=== PATIENT | male | born 1950 | race Caucasian/White ===

== ENCOUNTER → 2021-10-05 10:40 | Outpatient (CLI) | payer BC, SELFPAY ==
--- NOTE | ~2021-10-05 | XR_ITS ---
EXAMINATION: XR abdomen/kub 1V EXAM DATE: 10/05/2021 11:02 INDICATION: Personal history of urinary calculi . Follow up onto left kidney stones. Low back pain in the mornings. TECHNIQUE: Frontal projection(s) of the abdomen for interpretation. There is no prior study for jared mcgill. FINDINGS: There are calcified gallstones and pelvic phleboliths. There is mild to moderate lumbar de xtroscoliosis and disc disease. Moderate amount of colonic stool and gas. No small bowel obstruction. No kidney stone identified. IMPRESSION: Cholelithiasis. Moderate colonic stool obscuring renal contours. Reviewed, dictated and finalized at location B. TRIC METER TECHNICIAN
== END ==
PROVIDERS: Visit Provider Urology
DX: K80.20 Calculus of gallbladder without cholecystitis without obstruction (principal); Z87.442 Personal history of urinary calculi
CPT/HCPCS: 74018

== ENCOUNTER 2021-11-01 00:44 | Day surgery (SDC) | payer BC, SELFPAY ==
[2021-10-13 15:25] VITALS: BMI 24.3
--- NOTE | 2021-10-29 12:54 | P.HP_ITS ---
History of Present Illness History of Present Illness Consent: Risks, benefits, and alternatives have been discussed and questions answered. Patient agrees to proceed with procedure. Chief complaint: hx of colon polyps Narrative: Luciano Madrigal Jr. is a 71 year old male Referred for colon cancer screening. He has history of polyps Review of Systems Review of Systems: All systems reviewed & are unremarkable except as noted in HPI and below PMFSH Past Medical History Medical History Diabetes type 2, controlled Hyperlipidemia Hypothyroidism Parotid cyst Peripheral neuropathy Surgical History Surgical History History of rotator cuff surgery right Family History Family History Mother H/O cancer of gall bladder Father Heart disease Social History Social History Smoking status: Never smoker Second hand tobacco smoke exposure: No Alcohol intake: current Alcohol use details: rarely Substance use: never Substance use type: does not use Living arrangements: with family Gender identity (if verbalized by the patient): Male Sexual Orientation (if Verbalized by the Patient): Straight or Heterosexual Spiritual care concerns: No Meds Home Medications and Allergies Home Medications Medication Instructions Recorded Confirmed Type cholecalciferol (vitamin D3) 50 50 mcg PO DAILY 08/23/21 11/01/21 History mcg (2,000 unit) capsule cyanocobalamin (vitamin B-12) 1,000 mcg PO DAILY 08/23/21 11/01/21 History 1,000 mcg capsule levothyroxine 50 mcg tablet 50 mcg PO DAILY 08/23/21 11/01/21 History metformin 500 mg tablet 500 mg PO DAILY 08/23/21 11/01/21 History pravastatin 40 mg tablet 40 mg PO DAILY 08/23/21 11/01/21 History tamsulosin 0.4 mg capsule 0.8 mg PO DAILY cap 08/23/21 11/01/21 History Allergies Allergy/AdvReac Type Severity Reaction Status Date / Time No Known Allergies Allergy Unknown Verified 11/01/21 08:06 Exam Resp: Auscultation: clear to auscultation bilaterally Cardio: Rate: regular rate Rhythm: regular rhythm GI: GI Palp: Yes Soft to palpation and No Tenderness to palpation present (GI) Assessment and Plan Assessment and plan (1) Colon cancer screening: Code(s): Z12.11 - Encounter for screening for malignant neoplasm of colon Status: Acute Assessment and Plan: Colonoscopy with possible biopsy or polypectomy or cautery or injection of dooley bstances.
[2021-11-01 08:07] VITALS: BP 148/78; PULSE 73; RESP 18; TEMP 36.1; O2SAT 98
--- NOTE | 2021-11-01 08:17 | P.PNAN_ITS ---
Anes - Initial Pre Proc Eval Procedure: Operation Date: 11/01/21 09:00 Proposed Procedures p Screening Colonoscopy - Dav Sun MD Date/Time: 11/01/21 08:17 Surgeon: Dav Sun MD Pre Op Diagnosis: hx of colon polyps Patient Data Age: 71 Gender: M Height: 1.8 m Weight: 79.5 kg Last Vital Signs Temp 36.1 C L 11/01/21 08:07 Pulse 73 11/01/21 08:07 Resp 18 11/01/21 08:07 BP 148/78 H 11/01/21 08:07 Pulse Ox 98 11/01/21 08:07 Allergies Allergy/AdvReac Type Severity Reaction Status Date / Time No Known Allergies Allergy Unknown Verified 11/01/21 08:06 Home Medications Medication Instructions Recorded Confirmed Type cholecalciferol (vitamin D3) 50 50 mcg PO DAILY 08/23/21 11/01/21 History mcg (2,000 unit) capsule cyanocobalamin (vitamin B-12) 1,000 mcg PO DAILY 08/23/21 11/01/21 History 1,000 mcg capsule levothyroxine 50 mcg tablet 50 mcg PO DAILY 08/23/21 11/01/21 History metformin 500 mg tablet 500 mg PO DAILY 08/23/21 11/01/21 History pravastatin 40 mg tablet 40 mg PO DAILY 08/23/21 11/01/21 History tamsulosin 0.4 mg capsule 0.8 mg PO DAILY cap 08/23/21 11/01/21 History Patient hx anesthesia problems: none Family hx anesthesia problems: none Results Review: All pre-operative results and documents have been reviewed as part of the pre-operative evaluation. [facility] Past Medical History Medical History (Updated 10/29/21 @ 12:55 by Dav Sun MD) Diabetes type 2, controlled Hyperlipidemia Hypothyroidism Parotid cyst Peripheral neuropathy Surgical History Surgical History History of rotator cuff surgery right Family History Family History Mother H/O cancer of gall bladder Father Heart disease Social History Social History Smoking status: Never smoker Second hand tobacco smoke exposure: No Alcohol intake: current Alcohol use details: rarely Substance use: never Substance use type: does not use Living arrangements: with family Gender identity (if verbalized by the patient): Male Sexual Orientation (if Verbalized by the Patient): Straight or Heterosexual Spiritual care concerns: No Anes - Eval Final PreProcedure Day of Procedure 11/01/21 08:17 Patient weight: normal Heart: regular rate and rhythm Lungs: clear to auscultation and normal air movement Airway: Mallampati scale class II Neurological: alert and oriented Last oral intake: >/= 8 hours ASA classification: III Emergent: no Anesthetic plan: proceed Anesthesia type and monitoring: general GIVS and standard monitoring Results Review: All pre-operative results and documents have been reviewed as part of the pre-operative evaluation. Informed Consent: The patient's anesthetic plan and its attendant risks and benefits were discussed with the patient/family/POA. Questions were solicited and answers provided to the satisfaction of the patient/family/POA.
[2021-11-01] MEDS: LACTATED RINGERS 1,000 ML 150 ML IV CONT (08:27)
[2021-11-01 08:30] LABS: Glucose Point of Care 127 mg/dl (65-105)
[2021-11-01 09:15] VITALS: BP 87/48; PULSE 59; RESP 16; O2SAT 97
[2021-11-01 09:25] VITALS: BP 110/65; PULSE 63; RESP 18; O2SAT 98
[2021-11-01 09:35] VITALS: BP 123/63; PULSE 60; RESP 20; O2SAT 98
== END 2021-11-01 09:51 | disposition home or self-care (01) ==
PROVIDERS: PCP Family Medicine; Visit Provider Internal Medicine Gastroenterology
PROC: 0DJD8ZZ Inspection of Lower Intestinal Tract, Via Natural or Artificial Opening Endoscopic (ICD-10-PCS; CPT 45378; principal; 2021-11-01 09:00)
DX: Z12.11 Encounter for screening for malignant neoplasm of colon (principal); D12.5 Benign neoplasm of sigmoid colon; K64.8 Other hemorrhoids; K57.30 Diverticulosis of large intestine without perforation or abscess without bleeding; E03.9 Hypothyroidism, unspecified; Z79.84 Long term (current) use of oral hypoglycemic drugs; E11.9 Type 2 diabetes mellitus without complications; E78.5 Hyperlipidemia, unspecified; G62.9 Polyneuropathy, unspecified
CPT/HCPCS: 45385; 82948; 88305; J2704; J7120

== ENCOUNTER 2021-11-18 12:59 | Outpatient (CLI) | payer BC, SELFPAY ==
--- NOTE | ~2021-11-18 | US_ITS ---
EXAMINATION: US FNA w image guidance DATE: 11/18/2021 14:00 INDICATION: Neoplasm of unspecified behavior of digestive system. TECHNIQUE: The procedure and its benefits and risks were discussed with the patient. Risks specifically discusse d included bleeding. The patient verbalized understanding of the risks and agreed to proceed. The nec k was prepped and draped in the usual sterile manner. 1% lidocaine was used for local anesthesia. 5 passes were made with a 25G needle into the lesion under ultrasound guidance. There were no immedia te complications. FINDINGS: Grayscale ultrasound images demonstrate needles advanced into a 3.7 x 1.9 x 3.6 cm mass in superficia l right parotid gland for biopsy. IMPRESSION: 1. Ultrasound-guided fine needle aspiration of a right parotid mass. Reviewed, dictated and finalized at location A. NT CRUSHER OPERATOR
== END 2021-11-18 13:00 | disposition home or self-care (01) ==
LOC: ANHIMG 13:04
PROVIDERS: PCP Family Medicine; Visit Provider Otolaryngology
DX: D49.0 Neoplasm of unspecified behavior of digestive system (principal)
CPT/HCPCS: 10005; 88173; 88305

== ENCOUNTER 2022-01-24 10:41 | Outpatient (CLI) | payer BC, SELFPAY ==
[2022-01-24 11:08] LABS: Basophils Absolute Auto 0.1 K/mm3 (0.0-0.1); Basophils Percent Auto 0.8 % (0.2-1.2); Eosinophils Absolute Auto 0.2 K/mm3 (0-0.3); Eosinophils Percent Auto 1.9 % (0-4.4); Hemoglobin 14.2 g/dL (14.0-18.0); Immature Granulocyte Absolute 0.04 K/mm3 (0.00-0.031); Immature Granulocyte Percent A 0.5 % (0-0.5); Lymphocytes Absolute Auto 1.32 K/mm3 (0.9-3.2); Lymphocytes Percent Auto 15.6 % (18.3-44.2); Mean Corpuscular HGB Conc 33.8 g/dl (32-36); Mean Corpuscular Hemoglobin 30.3 pg (26-34); Mean Corpuscular Volume 89.6 fl (80-100); Mean Platelet Volume 9.2 fl (7.4-10.4); Monocytes Absolute Auto 0.7 K/mm3 (0.1-0.6); Monocytes Percent Auto 8.3 % (2.6-8.5); Neutrophils Absolute Auto 6.2 K/mm3 (1.3-6.7); Neutrophils Percent Auto 72.9 % (45.5-73.1); Platelet Count Result 302 k/mm3 (150-375); Red Blood Count 4.69 M/mm3 (4.6-6.20); Red Cell Distribution Width 12.6 % (11.5-14.5); White Blood Count 8.5 K/mm3 (4.5-10.0)
[2022-01-24 11:15] LABS: Add Urine Microscopic? NO; Appearance Urine Clear (Clear); Bilirubin Urine Negative (Negative); Blood Urine Negative (Negative); Color Urine Yellow (Yellow); Glucose Urine UA Negative (Negative); Ketones Urine Negative (Negative); Leukocyte Esterase Ur Negative LEU/UL (NEGATIVE); Nitrate Urine Negative (Negative); Protein Urine Negative (Negative); Specific Grav Ur 1.013 (1.001-1.035); Urobilinogen Urine Negative mg/dL (<2.0)
[2022-01-24 11:36] LABS: Alanine Aminotransferase 16 U/L (4-50); Albumin Level 4.3 g/dL (3.5-5.1); Alkaline Phosphatase 80 U/L (38-126); Anion Gap 6 mmol/L (8-16); Aspartate Amino Transferase 27 U/L (17-59); Bilirubin,Total 0.7 mg/dL (0.2-1.3); Blood Urea Nitrogen 13 mg/dL (9-20); Calcium 8.8 mg/dL (8.4-10.2); Carbon Dioxide 30 mmol/L (22-30); Chloride 101 mmol/L (98-107); Estimated Glomerular Filt Rate 60; Glucose 127 mg/dL (65-110); Potassium 3.9 mmol/L (3.4-5.0); Sodium 137 mmol/L (137-145)
== END 2022-01-24 10:42 | disposition home or self-care (01) ==
PROVIDERS: PCP Family Medicine; Visit Provider Physician Assistant
DX: R10.30 Lower abdominal pain, unspecified (principal); R10.32 Left lower quadrant pain
CPT/HCPCS: 36415; 80053; 81003; 85025

== ENCOUNTER 2022-01-27 14:40 | Outpatient (CLI) | payer BC, SELFPAY ==
--- NOTE | ~2022-01-27 | CT_ITS ---
EXAMINATION: CT abdomen pelvis w con DATE: 01/27/2022 15:08 INDICATION: Left lower quadrant abdominal pain and tenderness for a couple of days. TECHNIQUE: Computed tomography (CT) of the abdomen and pelvis was performed with 100 CC Omnipaque 350 intravenous contrast. Automated exposure control and iterative reconstruction technique were employe d. Exam dose: 366.56 mGy-cm total exam DLP. COMPARISON: 10/20/2011 CT renal scan FINDINGS: The lung bases are clear of infiltrate or consolidation. Normal heart size. There is trace pericardial fluid. No pleural effusion. 1.8 x 2.8 cm right adrenal mass, not present on 10/20/2007. This is most likely an adrenal adenoma if there is no known malignancy., But differential diagnosis does include adrenal metastasis. There are numerous stones in the dependent aspect of the gallbladder there is borderline thickening o f the gallbladder wall. No pericholecystic inflammation or fluid is evident. No bile duct or pancreat ic duct dilatation. 11 x 14 mm hypoenhancing lesion of the lower pole the right kidney, likely a cyst. There are approximately 4 small nonobstructing right renal calculi, in the 2-2.5 mm range. There are approximately 5 nonobstructing left renal calculi, from punctate size up to approximately 3 .8 mm. There is prominent prostate enlargement. Is moderate diffuse thickening of the urinary bladder wall. There is mild atherosclerotic calcification of the abdominal aorta and iliac arteries but no aneurysm . No intraperitoneal or retroperitoneal or pelvic mass lesion or adenopathy or ascites. There are innumerable diverticula of the left colon; the sigmoid colon is studded with some. There is mild pericolic fat stranding in the region of the distal descending colon consistent with mild diver ticulitis. No abscess is identified. No intraperitoneal free air. No bowel obstruction. There is multilevel degenerative disc disease, including the lower thoracic spine and particularly L1 -2, L2-3, L3-4 and L5-S1. There is associated mild retrolisthesis at each of these lumbar and lumbosa cral interspaces. No suspicious osteolytic or osteoblastic lesions are noted. IMPRESSION: Mild distal descending colonic diverticulitis Extensive diverticulosis of the left colon diverticulosis sigmoid colon Bilateral nonobstructive nephrolithiasis Prominent prostate enlargement, with moderate diffuse bladder wall thickening Cholelithiasis Right adrenal mass, new since 2006; diffusion diagnosis includes adrenal adenoma, and adrenal metasta sis Reviewed, dictated and finalized at Location A. Reviewed, dictated and finalized at location A. IMPRESSION: Mild distal descending colonic diverticulitis Extensive diverticulosis of the left colon diverticulosis sigmoid colon Bilateral nonobstructive nephrolithiasis Prominent prostate enlargement, with moderate diffuse bladder wall thickening Cholelithiasis Right adrenal mass, new since 2006; diffusion diagnosis includes adrenal adenom a, and adrenal metastasis
== END 2022-01-27 14:41 | disposition home or self-care (01) ==
PROVIDERS: PCP Family Medicine; Visit Provider Physician Assistant
DX: R10.32 Left lower quadrant pain (principal); K57.32 Diverticulitis of large intestine without perforation or abscess without bleeding; N20.0 Calculus of kidney; K80.20 Calculus of gallbladder without cholecystitis without obstruction; D35.01 Benign neoplasm of right adrenal gland
CPT/HCPCS: 74177; Q9967

== ENCOUNTER 2022-10-10 07:09 | Outpatient (CLI) | payer BC, SELFPAY ==
--- NOTE | ~2022-10-10 | CT_ITS ---
Non-contrast CT scan of the Abdomen and Pelvis Clinical indication: Kidney stones Technique: 5 mm axial scans were obtained through the abdomen and pelvis without intravenous or oral contrast. Dose reduction technique was used on this scan by utilizing automated exposure control and iterative reconstruction technique. The dose-length product (DLP) was 198.78 mGy-cm. COMPARISON: 01/27/2022 Findings: Images through the lung bases reveal no abnormalities. Multiple small bilateral nonobstructing renal calculi are present, similar to prior exam. No ureteral stone or hydronephrosis on either side. The liver, spleen, pancreas, and left adrenal gland appear normal. Multiple small calcified gallstone s are present. Stable low-density right adrenal nodule, compatible with adenoma. There is no aortic a neurysm. There is no evidence of bowel obstruction. Sigmoid diverticulosis noted. Images through the pelvis were performed. There is no evidence of ascites or lymphadenopathy. Urinary bladder unremarkable. Prostate gland is markedly enlarged. Impression: Small bilateral nonobstructing renal calculi, similar prior exam. No ureteral stone or hydronephrosis . Markedly enlarged prostate gland. Cholelithiasis. Stable right adrenal adenoma. Reviewed, dictated and finalized at location [] DAY CARE ATTENDANT Impression: Small bilateral nonobstructing renal calculi, similar prior exam. No ureteral s tone or hydronephrosis. Markedly enlarged prostate gland. Cholelithiasis. Stable right adrenal adenoma.
== END 2022-10-10 07:10 | disposition home or self-care (01) ==
PROVIDERS: PCP Family Medicine; Visit Provider Urology
DX: Z87.442 Personal history of urinary calculi (principal); K80.20 Calculus of gallbladder without cholecystitis without obstruction; N40.0 Benign prostatic hyperplasia without lower urinary tract symptoms; D35.01 Benign neoplasm of right adrenal gland
CPT/HCPCS: 74176

== ENCOUNTER 2022-10-20 08:01 | Outpatient (CLI) | payer BC, SELFPAY ==
--- NOTE | 2022-10-20 08:08 | ECG_ITS ---
Measurements Intervals [place] Rate: 73 P: 56 ME: 179 QRS: -32 QRSD: 98 T: 27 QT: 397 QTc: 440 Interpretive Statements SINUS RHYTHM MARKED LEFT AXIS DEVIATION [QRS AXIS < -30] BASELINE ARTIFACT PRESENT NO PREVIOUS ECG AVAILABLE FOR COMPARISON Electronically Signed On 10-20-2022 14:53:11 WAREHOUSE MANAGER by Duane West M.D.
== END 2022-10-20 08:02 | disposition home or self-care (01) ==
PROVIDERS: PCP Family Medicine; Visit Provider Otolaryngology
DX: E78.5 Hyperlipidemia, unspecified (principal); Z01.818 Encounter for other preprocedural examination
CPT/HCPCS: 93005

== ENCOUNTER 2022-10-25 08:01 | Day surgery (SDC) | payer BC, SELFPAY ==
--- NOTE | 2022-10-10 14:51 | PC.NURSE ---
Report to the Outpatient Waiting Room, entrance under the green pavilion located off [address], at time __1000 on date __10/25/22 . Planned Procedure Time: _1200 . Time changes happen often and if your time is changed the preop area will call you the afternoon before. - You and your visitor will be asked to self-screen and do not enter if you have any COVID symptoms. - Only one visitor is requested with a max of two and NO children visitors are allowed at this time. - The patient visitor may be requested to leave or wait in car when not with patient due to distancing restrictions. - A mask is optional within the hospital. Patients may have clear liquids (water, carbonated beverages, clear teas, apple juice) until 3 hours prior to surgery with a maximum of 20 ounces. - No food from midnight until time of surgery - Infants may have breast milk until 4 hours before surgery, infant formula 6 hours prior to surgery. - Children will be allowed to drink immediately following surgery. If applicable, please bring a bottle or sippy cup to assist with drinking. Juice, water, soda, and popsicles are readily available. For infants on formula, please bring formula the day of surgery. Pacifiers are allowed. Take the following medications with a SIP of water the morning of surgery: __LEVOTHYROXINE Medications to discontinue per physician ___ALL VITAMINS AND SUPPLEMENTS 3 DAYS PRE OP Date to take last dose___10/21/22 Please no make-up, nail setswana, hairspray, perfume, deodorant, or body powder the day of surgery. No jewelry (including any body piercings) or valuables the day of surgery, leave them at home. Please take a shower or bath the night before, or the morning of, surgery with an antibacterial soap. Wear comfortable, loose fitting clothing. Children are encouraged to wear pajamas. - Jewelry must be removed prior to entering the operating room. Rings and piercings that are not removed may be cut off. - The hospital will not accept responsibility for valuables. - Please leave all valuables, including medications, at home the day of surgery. If you are going home after surgery, a licensed septic pump truck driver must drive you home. - NO public transportation without another adult if you receive anesthesia. - We recommend that an adult stay with you for 24 hours following discharge. - We also recommend that you do not drive, make important decision, drink alcoholic beverages, or take any drugs that were not prescribed by your health care provider for at least 24 hours after your discharge time. For Pediatric surgeries, we recommend two adults accompany the child home. Follow any additional instructions given to you from your surgeon. If you or anyone in your household have experienced Covid symptoms in the past week, please notify your surgeon or the nurse liaison at the phone number below for possible testing. Telephone instructions given to ___PATIENT and asked if any additional questions and then verbalized understanding. Patient advised to call surgeon office or pre surgery nurse liaison [phone] if any additional questions.
[2022-10-10 14:59] VITALS: BMI 24.3
--- NOTE | 2022-10-24 13:58 | P.HP_ITS ---
H&P: HPI History of Present Illness Date/Time: 10/24/22 13:58 Chief Complaint: Right parotid mass Narrative: planned surgical procedure previous pathology hemorrhagic cyst Review of Systems Review of Systems: All systems reviewed & are unremarkable except as noted in HPI and below [facility] Past Medical History Medical History Diabetes type 2, controlled Hyperlipidemia Hypothyroidism Parotid cyst Peripheral neuropathy Surgical History Surgical History History of rotator cuff surgery right Family History Family History Mother H/O cancer of gall bladder Father Heart disease Social History Social History (Updated 09/28/22 @ 10:25 by TAVON Davison) Smoking status: Never smoker Second hand tobacco smoke exposure: No Alcohol intake: current Drinks per week: 1 Alcohol use details: rarely Substance use: never Substance use type: does not use Lack of Transportation: No Lack of Food: Never True Current Housing: I Have Housing Concerned About Future Housing: No Difficulty Paying Gas/Electric Bills: No Difficulty Paying for Meds: No Currently Unemployed: No Education: Master's Degree or Higher Difficulty w/ Childcare or Family Care: No Gender identity (if verbalized by the patient): Male Sexual Orientation (if Verbalized by the Patient): Straight or Heterosexual Spiritual care concerns: No Meds Home Medications and Allergies Home Medications Medication Instructions Recorded Confirmed Type cholecalciferol (vitamin D3) 50 50 mcg PO DAILY 08/23/21 10/10/22 History mcg (2,000 unit) capsule cyanocobalamin (vitamin B-12) 1,000 mcg PO DAILY 08/23/21 10/10/22 History 1,000 mcg capsule tamsulosin 0.4 mg capsule 0.4 mg PO BID #180 caps 12/29/21 10/10/22 Rx pravastatin 40 mg tablet See Rx Instructions .Route 06/30/22 10/10/22 Rx .COMPLEX #90 tabs metformin 500 mg tablet 500 mg PO DAILY #90 tabs 09/23/22 10/10/22 Rx levothyroxine 50 mcg tablet See Rx Instructions .Route 10/11/22 Rx .COMPLEX #90 tabs Allergies Allergy/AdvReac Type Severity Reaction Status Date / Time No Known Allergies Allergy Unknown Verified 10/10/22 14:39 Exam Narrative: right parotid mass Assessment and Plan Assessment and plan (1) Parotid tumor: Code(s): D49.0 - Neoplasm of unspecified behavior of digestive system Status: Acute Assessment and Plan: plan operating room right-sided superficial parotidectomy with facial nerve monitoring. Total operative time about 3 hours. Risks were discussed including bleeding infection damage to surrounding structures all structures facial nerve paresis facial nerve paralysis need for further procedures possible spread if pleomorphic adenoma. Need for further procedures if malignant. everton syndrome 1st bite syndrome sialocele, salivary fistula, need for drain placement.l patient voiced understanding and agreed. 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
[2022-10-25] VITALS (9 sets, daily range): BP systolic 128–189; BP diastolic 76–101; PULSE 79–116; RESP 12–18; TEMP 36.6–36.9; O2SAT 92–100
--- NOTE | 2022-10-25 07:18 | WPDHPUPDATE1 ---
History and Physical Update Update Date/Time: 10/25/22 07:18 History and Physical has been reviewed, including an updated exam of the patient. There are NO changes in the patient's condition. Risks, benefits, and alternatives have been discussed and questions answered. Patient agrees to proceed with procedure. Also discussed numbness of the right face/ear lobe.
--- NOTE | 2022-10-25 09:43 | WPDANESEPPF ---
Anes - Initial Pre Proc Eval Procedure: Operation Date: 10/25/22 11:30 Proposed Procedures p Right Superficial Parotidectomy with Facial Nerve Dissection - Wade House MD Date/Time: 10/25/22 09:43 Surgeon: Wade House MD Pre Op Diagnosis: right parotid mass Patient Data Age: 72 Gender: M Height: 1.8 m Weight: 78.99 kg Allergies Allergy/AdvReac Type Severity Reaction Status Date / Time No Known Allergies Allergy Unknown Verified 10/10/22 14:39 Home Medications Medication Instructions Recorded Confirmed Type cholecalciferol (vitamin D3) 50 50 mcg PO DAILY 08/23/21 10/10/22 History mcg (2,000 unit) capsule cyanocobalamin (vitamin B-12) 1,000 mcg PO DAILY 08/23/21 10/10/22 History 1,000 mcg capsule tamsulosin 0.4 mg capsule 0.4 mg PO BID #180 caps 12/29/21 10/10/22 Rx pravastatin 40 mg tablet See Rx Instructions .Route 06/30/22 10/10/22 Rx .COMPLEX #90 tabs metformin 500 mg tablet 500 mg PO DAILY #90 tabs 09/23/22 10/10/22 Rx levothyroxine 50 mcg tablet See Rx Instructions .Route 10/11/22 Rx .COMPLEX #90 tabs Patient hx anesthesia problems: none Family hx anesthesia problems: none Results Review: All pre-operative results and documents have been reviewed as part of the pre-operative evaluation. [facility] Past Medical History Medical History Diabetes type 2, controlled Hyperlipidemia Hypothyroidism Parotid cyst Peripheral neuropathy Surgical History Surgical History History of rotator cuff surgery right Family History Family History Mother H/O cancer of gall bladder Father Heart disease Social History Social History (Updated 09/28/22 @ 10:25 by TAVON Davison) Smoking status: Never smoker Second hand tobacco smoke exposure: No Alcohol intake: current Drinks per week: 1 Alcohol use details: rarely Substance use: never Substance use type: does not use Lack of Transportation: No Lack of Food: Never True Current Housing: I Have Housing Concerned About Future Housing: No Difficulty Paying Gas/Electric Bills: No Difficulty Paying for Meds: No Currently Unemployed: No Education: Master's Degree or Higher Difficulty w/ Childcare or Family Care: No Living arrangements: with family Gender identity (if verbalized by the patient): Male Sexual Orientation (if Verbalized by the Patient): Straight or Heterosexual Spiritual care concerns: No Anes - Eval Final PreProcedure Day of Procedure 10/25/22 09:43 Patient weight: normal Heart: regular rate and rhythm Lungs: clear to auscultation and normal air movement Airway: Mallampati scale class II Neurological: alert and oriented Last oral intake: >/= 8 hours ASA classification: III Emergent: no Anesthetic plan: proceed Anesthesia type and monitoring: general ETT and standard monitoring Results Review: All pre-operative results and documents have been reviewed as part of the pre-operative evaluation. Informed Consent: The patient's anesthetic plan and its attendant risks and benefits were discussed with the patient/family/POA. Questions were solicited and answers provided to the satisfaction of the patient/family/POA.
[2022-10-25 09:59] LABS: Glucose Point of Care 134 mg/dl (65-105)
[2022-10-25] MEDS: LACTATED RINGERS 1,000 ML 30 ML IV CONT ×2 (10:11→13:06)
[2022-10-25] MEDS: ceFAZolin 2 GM/D5W 50 ML 2 GM/50 ML BAG IVPB (10:18)
[2022-10-25] MEDS: NEOMYCIN/POLYMYXIN/BACITRACIN OINTMENT 15 GM TUBE 1 APPLIC TOPICAL (12:49)
[2022-10-25 13:23] LABS: Glucose Point of Care 160 mg/dl (65-105)
--- NOTE | 2022-10-25 14:06 | SUR.PHASEI ---
1400 DR GARCIA AWARE OF BP 189/99 & EXTREME URGENCY TO URINATE. PT WANTING TO STAND UP IN THE RESTROOM. DR GARCIA OKAY WITH PT BEING DISCHARGE TO PHASE 2, LET PT URINATE, & CONTINUE TO MONITOR BP.
[2022-10-25 14:08] LABS: Hepatitis B Surface Antigen Negative (Negative)
[2022-10-25 14:25] LABS: HIV 1/2 Ab P24 Ag Result Negative (Negative); Hepatitis C Virus Antibody Negative (Negative)
--- NOTE | 2022-10-25 15:46 | SUR.PHASEII ---
1535 DR. MARIE HERE TO SPEAK WITH PATIENT.
--- NOTE | 2022-10-25 17:22 | W.PM.PROC2 ---
Procedure Note - Detailed Date of Procedure 10/25/22 Pre-op Diagnosis right parotid mass Post-op Diagnosis Same Procedure Performed Right superficial parotidectomy excision right parotid tumor with facial nerve monitoring. Surgeon Wade House MD Lpn Private Duty [facility] Anesthesia General Indications see above Description of Procedure of very large parotid tumor cm across probably 5. Facial nerve was intact following procedure greater auricular nerve intact. Patient tolerated procedure very well. Estimated Blood Loss -15.0 Urine Output 50 Drains Yes Packing No Pathology Yes Complications No immediate complications Condition Stable Disposition PACU
== END 2022-10-25 15:40 | disposition home or self-care (01) ==
PROVIDERS: PCP Family Medicine; Visit Provider Otolaryngology
PROC: (CPT 42410; principal; 2022-10-25 11:30)
DX: D11.0 Benign neoplasm of parotid gland (principal); E11.9 Type 2 diabetes mellitus without complications; E78.5 Hyperlipidemia, unspecified; E03.9 Hypothyroidism, unspecified; Z79.84 Long term (current) use of oral hypoglycemic drugs
CPT/HCPCS: 42415; 36415; 82948; 86703; 86803; 87340; 88305; A9270; G0432; J0330; J0690; J1100; J2405; J2704; J3010; J7120

== ENCOUNTER 2022-12-01 12:46 | Emergency (ER) | payer BC, SELFPAY ==
[2022-12-01 12:57] VITALS: BP 131/83; PULSE 68; RESP 20; TEMP 36.8; O2SAT 96
--- NOTE | 2022-12-01 12:59 | ED.WOUNDLAC ---
HPI - Wound/Laceration General Chief Complaint: Wound/Laceration Stated Complaint: lt hand middle finger injury Time Seen by Provider: 12/01/22 13:05 Source: patient and RN notes reviewed Mode of arrival: ambulatory Limitations: no limitations History of Present Illness HPI narrative: 72-year-old male presents with concern for laceration to the 3rd digit of the left hand. Reports he was cutting drywall with a new blade prior to arrival when he lacerated his finger. He is not up-to-date on his tetanus vaccination. He denies any decreased strength, sensation, range of motion of the digit. Related Data Home Medications Medication Instructions Recorded Confirmed cholecalciferol (vitamin D3) 50 50 mcg PO DAILY 08/23/21 12/01/22 mcg (2,000 unit) capsule cyanocobalamin (vitamin B-12) 1,000 mcg PO DAILY 08/23/21 12/01/22 1,000 mcg capsule Allergies Allergy/AdvReac Type Severity Reaction Status Date / Time No Known Allergies Allergy Unknown Verified 12/01/22 12:55 Review of Systems Review of Systems: CONSTITUTIONAL: Denies malaise, chills, sweats, or fever. SKIN: Reports laceration to the tip of the 3rd digit of left hand MUSCULOSKELETAL: Denies muscle skeletal pain NEUROLOGIC: Denies numbness, weakness All systems reviewed & are unremarkable except as noted in HPI and below PMFSH Past Medical History Medical History Diabetes type 2, controlled Hyperlipidemia Hypothyroidism Parotid cyst Peripheral neuropathy Surgical History Surgical History History of rotator cuff surgery right Family History Family History Mother H/O cancer of gall bladder Father Heart disease Social History Social History Smoking status: Never smoker Second hand tobacco smoke exposure: No Alcohol intake: current Drinks per week: 1 Alcohol use details: rarely Substance use: never Substance use type: does not use Lack of Transportation: No Lack of Food: Never True Current Housing: I Have Housing Concerned About Future Housing: No Difficulty Paying Gas/Electric Bills: No Difficulty Paying for Meds: No Currently Unemployed: No Education: Master's Degree or Higher Difficulty w/ Childcare or Family Care: No Living arrangements: with family Occupation/Education: retired Gender identity (if verbalized by the patient): Male Sexual Orientation (if Verbalized by the Patient): Straight or Heterosexual Spiritual care concerns: No Comments At time of signature, agree with nursing past medical, surgical, social and family history. There is no relevant family history pertinent to the presenting complaint Exam Narrative: GENERAL: Well-appearing, well-nourished, and in no acute distress. HEAD: Normocephalic EYES: PERRLA, conjunctivae clear NECK: Supple. CHEST: Speaks in full sentences. No respiratory distress. HEART: Regular rate and rhythm. Normal and equal peripheral pulses. EXTREMITIES: 3rd digit of left hand has normal strength and sensation. 5/5 strength with digit flexion, extension. Range of motion normal. No clubbing, cyanosis, or edema noted. Normal digital cascade with flexion of fingers, median, ulnar and radial nerve intact. Normal sensation of each side of finger.Good capillary refill and radial pulse. Distal capillary refill less than 3 seconds. Patient is right/left hand dominant SKIN: [place]arn, dry, intact, pink. 1 cm linear laceration, slightly superficial to the distal 3rd digit of left hand, not involving the nail, very superficial abrasion/laceration proximal to that next to the nail bed, not involving the nail bed which is an additional 1.5 cm long NEURO: Alert and oriented x3. PSYCH: Normal mood and affect Course Course Emergency Course: Patient i
[2022-12-01] MEDS: TETANUS,DIPHTHERIA,AC PERTUSSIS ADULT (0.5 ML) BOOSTRIX IM (13:14)
== END 2022-12-01 13:40 | disposition home or self-care (01) ==
PROVIDERS: Emergency Provider Nurse Practitioner; PCP Family Medicine
DX: S61.213A Laceration without foreign body of left middle finger without damage to nail, initial encounter (principal); W26.8XXA Contact with other sharp object(s), not elsewhere classified, initial encounter; Z23 Encounter for immunization; E78.5 Hyperlipidemia, unspecified; E03.9 Hypothyroidism, unspecified; E11.42 Type 2 diabetes mellitus with diabetic polyneuropathy
CPT/HCPCS: 12001; 90471; 90715; 99212; G0463

== ENCOUNTER 2023-04-09 13:05 | Emergency (ER) | payer BC, SELFPAY ==
--- NOTE | ~2023-04-09 | CT_ITS ---
EXAMINATION: CT abdomen pelvis w con DATE: 04/09/2023 17:59 INDICATION: Lower abdominal pain TECHNIQUE: Computed tomography (CT) of the abdomen and pelvis was performed with 100 cc Omnipaque 350 intravenous contrast. The dose-length product was 467.94 mGy-cm. Automated exposure control and iter ative reconstruction technique were employed. COMPARISON: CT dated 10/10/2022 FINDINGS: There is dependent atelectasis. Heart size normal. No significant pleural or pericardial ef fusion. There is a 3.2 cm low-density mass of the right adrenal gland, most likely benign adenoma. Th ere are gallstones. The liver, spleen, pancreas, left adrenal gland are unremarkable. There are nonob structing bilateral renal stones. There is a right renal cysts. There is no significant hydronephrosi s. There is atherosclerosis and ectasia of the aorta. Prostate gland is enlarged. There is a Chen ca theter in the bladder. Bladder wall appears to be thickened. Colonic diverticulosis without evidence for diverticulitis. Nonobstructive bowel pattern. Moderate lumbar spondylosis. No free air or free fl uid. IMPRESSION: 1. Bladder wall thickening which may be due to outlet obstruction from enlarged prostate gland and/or cystitis. Chen catheter present in the bladder. 2: Cholelithiasis. 3: Nonobstructing bilateral nephrolithiasis. Reviewed, dictated and finalized at location A.
[2023-04-09 13:28] VITALS: BP 109/73; PULSE 91; RESP 16; TEMP 36.4; O2SAT 99
[2023-04-09 13:53] LABS: Appearance Urine Clear (Clear); Bacteria Urine None Seen /hpf; Bilirubin Urine Negative (Negative); Blood Urine Negative (Negative); Color Urine Yellow (Yellow); Glucose Urine UA Negative (Negative); Ketones Urine Negative (Negative); Leukocyte Esterase Ur 1+ LEU/UL (Negative); Nitrate Urine Negative (Negative); Non Pathogenic Casts 0-2; Protein Urine 1+ mg/dL (Negative); RBC Urine 0-2 /hpf (0-2); Specific Grav Ur 1.024 (1.001-1.035); Squamous Epithelial Cell Urine None seen /hpf (Few); pH Urine 5.5 (5.0-9.0)
[2023-04-09 13:54] LABS: Add Urine Microscopic? YES
--- NOTE | 2023-04-09 14:34 | ED.GENADULT ---
HPI - General Adult General Chief complaint: Urogenital-Male Stated complaint: urinary retention Time Seen by Provider: 04/09/23 14:19 History of Present Illness HPI narrative: Patient is a 72-year-old male here for evaluation of sensation of urinary retention x3 days. Patient states he only has been able to void very small amounts of urine every 15 minutes or so. He saw his urologist a week ago and he was placed on Bactrim for suspected prostatitis. He was recently contacted and told that he needs to switch his antibiotic to Cipro due to culture and sensitivity reports. He has not yet picked up this medicine but he does state his symptoms of (white discharge from the penis and fever) have improved. He does have a history of prostatomegaly and elevated PSA but he has never required a catheter. Related Data Home Medications Medication Instructions Recorded Confirmed cholecalciferol (vitamin D3) 50 50 mcg PO DAILY 08/23/21 03/07/23 mcg (2,000 unit) capsule cyanocobalamin (vitamin B-12) 1,000 mcg PO DAILY 08/23/21 03/07/23 1,000 mcg capsule Allergies Allergy/AdvReac Type Severity Reaction Status Date / Time No Known Allergies Allergy Unknown Verified 03/07/23 08:20 Review of Systems Review of Systems: Gen.: Denies fevers or chills Eyes: Denies eye pain or visual change ENT: Denies congestion Respiratory: Denies shortness of breath or cough CV: Denies chest pain or palpitations GI: Denies abdominal pain nausea, emesis or diarrhea : Reports urinary retention Musculoskeletal: Denies back pain or muscle pain Neuro: Denies numbness, tingling, weakness or focal weakness Skin: Denies rash Except as documented, all other systems reviewed and negative [facility] Past Medical History Medical History Diabetes type 2, controlled Elevated PSA Hyperlipidemia Hypothyroidism Parotid cyst Peripheral neuropathy Surgical History Surgical History History of rotator cuff surgery right Family History Family History Mother H/O cancer of gall bladder Father Heart disease Social History Social History (Reviewed 03/07/23 @ 08:19 by Kayce Lovell Smoking status: Never smoker Second hand tobacco smoke exposure: No Alcohol intake: current Drinks per week: 1 Alcohol use details: rarely Substance use: never Substance use type: does not use Lack of Transportation: No Lack of Food: Never True Current Housing: I Have Housing Concerned About Future Housing: No Difficulty Paying Gas/Electric Bills: No Difficulty Paying for Meds: No Currently Unemployed: No Education: Master's Degree or Higher Difficulty w/ Childcare or Family Care: No Living arrangements: with family Occupation/Education: retired Gender identity (if verbalized by the patient): Male Sexual Orientation (if Verbalized by the Patient): Straight or Heterosexual Spiritual care concerns: No Exam Narrative: APPEARANCE: Well appearing, no pain in distress, well-nourished. Head: Normocephalic and atraumatic. EYES: PERRLA/EOMI, conjunctivae clear NOSE: No nasal drainage EARS: External ear normal in appearance THROAT: Oropharynx is clear. Mucous membranes are moist. NECK: Supple. No adenopathy, no masses. : no prostate tenderness on exam but prostate is uniformly enlarged, no bogginess. no fecal impaction RESPIRATORY: Airway patent, respirations nonlabored. Clear to auscultation bilaterally, no rales, rhonchi, wheezing. CARDIOVASCULAR: Regular rate and rhythm without murmurs, rubs, or gallops. ABDOMINAL: Normoactive bowel sounds. Soft, nontender, nondistended. No rebound tenderness or guarding. MUSCULOSKELETAL: Extremities are warm and well-perfused. Moves all extremities well. No edema. NEURO: Normal speech. No focal neurologic defic
[2023-04-09 16:37] LABS: Basophils Absolute Auto 0.1 K/mm3 (0.0-0.1); Basophils Percent Auto 0.4 % (0.2-1.2); Eosinophils Percent Auto 0.3 % (0-4.4); Hematocrit 39.4 % (42.0-52.0); Hemoglobin 13.2 g/dL (14.0-18.0); Immature Granulocyte Absolute 0.07 K/mm3 (0.00-0.031); Immature Granulocyte Percent A 0.4 % (0-0.5); Lymphocytes Percent Auto 6.4 % (18.3-44.2); Mean Corpuscular HGB Conc 33.5 g/dl (32-36); Mean Corpuscular Hemoglobin 30.8 pg (26-34); Mean Corpuscular Volume 91.8 fl (80-100); Mean Platelet Volume 8.9 fl (7.4-10.4); Monocytes Percent Auto 6.1 % (2.6-8.5); Neutrophils Absolute Auto 13.5 K/mm3 (1.3-6.7); Neutrophils Percent Auto 86.4 % (45.5-73.1); Platelet Count Result 338 k/mm3 (150-375); Red Blood Count 4.29 M/mm3 (4.6-6.20); White Blood Count 15.7 K/mm3 (4.5-10.0)
[2023-04-09 16:47] LABS: Alanine Aminotransferase 20 U/L (6-50); Albumin Level 4.6 g/dL (3.5-5.1); Alkaline Phosphatase 89 U/L (38-126); Anion Gap 10 mmol/L (8-16); Aspartate Amino Transferase 32 U/L (17-59); Bilirubin,Total 0.6 mg/dL (0.2-1.3); Blood Urea Nitrogen 20 mg/dL (9-20); Calcium 9.1 mg/dL (8.4-10.2); Carbon Dioxide 23 mmol/L (22-30); Chloride 104 mmol/L (98-107); Estimated CRCL calculation 38 ml/min; Estimated Glomerular Filt Rate 40; Glucose 131 mg/dL (65-110); Potassium 4.5 mmol/L (3.4-5.0); Sodium 137 mmol/L (137-145)
[2023-04-09] MEDS: SODIUM CHLORIDE 0.9% IV 1,000 ML 999 ML IV CONT (17:34)
[2023-04-09 17:39] VITALS: BP 146/75; PULSE 86; RESP 16; O2SAT 98
== END 2023-04-09 19:00 | disposition home or self-care (01) ==
PROVIDERS: Emergency Medicine; Emergency Provider Physician Assistant; PCP Family Medicine
DX: N30.90 Cystitis, unspecified without hematuria (principal); N41.9 Inflammatory disease of prostate, unspecified; E11.42 Type 2 diabetes mellitus with diabetic polyneuropathy; E78.5 Hyperlipidemia, unspecified; E03.9 Hypothyroidism, unspecified; Z79.84 Long term (current) use of oral hypoglycemic drugs
CPT/HCPCS: 36415; 51702; 74177; 80053; 81001; 85025; 87086; 96360; 99284; J7030; Q9967

== ENCOUNTER → 2023-07-24 16:34 | Outpatient (CLI) | payer BC, SELFPAY ==
--- NOTE | ~2023-07-24 | XR_ITS ---
XR knee RT 3V DATE: 07/24/2023 16:55 INDICATION: Right knee pain TECHNIQUE: [place] and standing AP and lateral views COMPARISON: None FINDINGS: No fracture or dislocation or joint effusion, periosteal reaction or bone destruction is de tected. There is slight periarticular spurring at the patellofemoral joint and mild loss of height of the med ial compartment joint space. No radiopaque intra-articular loose body or chondrocalcinosis. IMPRESSION: Mild osteoarthritis Reviewed, dictated and finalized at location B. IMPRESSION: Mild osteoarthritis
== END ==
PROVIDERS: PCP Family Medicine; Visit Provider Family Medicine
DX: M17.11 Unilateral primary osteoarthritis, right knee (principal)
CPT/HCPCS: 73562

== ENCOUNTER 2024-10-09 10:51 | Outpatient (CLI) | payer BC, SELFPAY ==
[2024-10-09 12:18] LABS: Influenza A QL RT-PCR Negative (Negative); Influenza B QL RT-PCR Negative (Negative); RSV RNA, RT-PCR Negative (Negative); SARS-CoV-2 RNA PCR Negative (Negative)
== END 2024-10-09 10:52 | disposition home or self-care (01) ==
LOC: ANHLAB 10:52
PROVIDERS: PCP Family Medicine; Visit Provider Family Medicine
DX: R05.9 Cough, unspecified (principal); Z20.822 Contact with and (suspected) exposure to COVID-19
CPT/HCPCS: 87637